=== PATIENT | male | born 1965 | race Caucasian/White ===

== ENCOUNTER 2024-11-23 14:02 | Inpatient (IN) | payer MEDICAID ==
[~2024-11-23] VITALS: Ht 172.7 cm; Wt 79.0 kg
[2024-11-23 14:54] LABS: BASOPHILS % 0.7 % (0.0-2.0); HEMATOCRIT. 24.8 % (42.0-52.0); HEMOGLOBIN. 8.3 g/dL (14.0-18.0); LYMPHOCYTES % 12.3 % (20.0-50.0); MEAN CORPUSCULAR HEMOGLOBIN 31.5 pg (28.0-32.0); MEAN CORPUSCULAR HGB CONC 33.5 g/dL (31.0-37.0); MEAN CORPUSCULAR VOLUME 94.2 fL (80.0-94.0); MEAN PLATELET VOLUME 8.3 fl (7.4-10.4); MONOCYTES % 9.4 % (2.0-8.0); NEUTROPHILS % 75.6 % (40.0-76.0); PLATELET 115 x1000/uL (130-400); RED BLOOD CELL COUNT 2.63 mill/uL (4.7-6.1); RED CELL DISTRIBUTION WIDTH 14.6 % (11.6-14.6); WHITE BLOOD COUNT 5.1 x1000/uL (4.5-11.0)
[2024-11-23 15:06] LABS: CHLORIDE 107 mEq/L (98-107); POTASSIUM 4.4 mEq/L (3.5-5.1); SODIUM 138 mEq/L (136-145)
[2024-11-23 15:07] LABS: CARBON DIOXIDE 23 mEq/L (21-32)
[2024-11-23 15:08] LABS: CALCIUM 8.6 mg/dL (8.7-10.4)
[2024-11-23 15:12] LABS: CREATININE 4.3 mg/dL (0.6-1.3); GLUCOSE 118 mg/dL (70-105); UREA NITROGEN BLOOD 55 mg/dL (9-23)
[2024-11-23 15:14] LABS: TROPONIN I HIGH SENSITIVITY 33 ng/L (3.0-53)
[2024-11-23 15:17] LABS: INR 1.1; PARTIAL THROMBOPLASTIN TIME 25.3 sec (23.4-31.0); PROTHROMBIN TIME 11.9 sec (9.6-11.0)
[2024-11-23] MEDS: FUROSEMIDE 40MG/4ML VIAL IVP ONE (15:40)
[2024-11-23 16:00] LABS: CLARITY URINE CLEAR (CLEAR); COLOR URINE YELLOW (YELLOW); PH URINE 6.5 (4.5-8.0); PROTEIN URINE 2+ (NEGATIVE)
[2024-11-23 16:01] LABS: GLUCOSE URINE 2+ (NEGATIVE); KETONES URINE NEGATIVE (NEGATIVE); LEUKOCYTE ESTERASE URINE NEGATIVE (NEGATIVE); NITRITE URINE NEGATIVE (NEGATIVE); OCCULT BLOOD URINE TRACE (NEGATIVE); UROBILINOGEN URINE 0.2 E.U./dL (0.2-1.0)
[2024-11-23 16:12] LABS: BACTERIA URINE FEW; RBC URINE 0-2 /hpf (0-2); SQUAMOUS EPITHELIAL CELL URINE NONE SEEN /lpf (RARE/1+); WBC URINE 0-2 /hpf (0-2); YEAST URINE NONE SEEN
[2024-11-23] MEDS ORDERED: GUAIFENESIN 200MG/10ML SUGAR FREE UDC PO PRN (16:15)
[2024-11-23] MEDS ORDERED: DEXTROSE 50% WATER 50ML SYRINGE IV PRN (16:15)
[2024-11-23] MEDS ORDERED: CLONIDINE 0.1MG TABLET PO PRN (16:15)
[2024-11-23] MEDS ORDERED: DOCUSATE SODIUM 100MG CAPSULE PO PRN (16:15)
[2024-11-23] MEDS ORDERED: ACETAMINOPHEN 325MG TABLET PO PRN (16:15)
[2024-11-23] MEDS ORDERED: IPRATROPIUM/ALBUTEROL 0.5-3(2.5)MG/3ML NEB HHN PRN (16:15)
[2024-11-23] MEDS: FUROSEMIDE 40MG/4ML VIAL IVP SCH (16:15)
[2024-11-23] MEDS ORDERED: ONDANSETRON HCL 4MG/2ML INJ IV PRN (16:15)
[2024-11-23] MEDS ORDERED: MAGNESIUM/ALUMINUM HYDROXIDE/SIMETHICONE 30ML UDC PO PRN (16:15)
[2024-11-23 17:24] LABS: FERRITIN 57 ng/mL (22-322); FOLIC ACID (FOLATE) SERUM 12.56 ng/mL (>5.38); TOTAL IRON BINDING CAPACITY 351 ug/dl (250-425); VITAMIN B12 SERUM 778 pg/mL (211-911)
[2024-11-23 17:28] LABS: IRON 46 ug/dL (65-175)
[2024-11-23] MEDS: INSULIN LISPRO 100 UNITS/ML SUBCUT SCH (17:40)
[2024-11-23 17:45] VITALS: BP 152/85; PULSE 80; RESP 18; TEMP 36.7
[2024-11-23] MEDS: BLOOD SUGAR DIAGNOSTIC STRIP TEST SCH (17:47)
[2024-11-23 17:50] VITALS: BP 152/85; PULSE 83; RESP 18; TEMP 36.7; O2SAT 96
[2024-11-23] MEDS: AMLODIPINE 10MG TABLET PO SCH (18:36)
[2024-11-23 20:06] VITALS: BP 130/82; PULSE 78; RESP 18; TEMP 36.8; O2SAT 95
[2024-11-24 00:04] VITALS: BP 141/85; PULSE 80; RESP 17; TEMP 36.6; O2SAT 95
[2024-11-24 00:33] LABS: TROPONIN I HIGH SENSITIVITY 51 ng/L (3.0-53)
[2024-11-24 00:34] LABS: CREATINE KINASE 162 IU/L (46-171)
[2024-11-24 04:05] VITALS: BP 137/65; PULSE 81; RESP 18; TEMP 36.7; O2SAT 93
[2024-11-24] MEDS: FUROSEMIDE 40MG/4ML VIAL IV SCH (06:22)
[2024-11-24 07:36] LABS: *AMPHETAMINES SCREEN URINE NEGATIVE (NEGATIVE); *BENZODIAZEPINES SCREEN URINE NEGATIVE (NEGATIVE)
[2024-11-24 07:37] LABS: *BARBITURATES SCREEN URINE NEGATIVE (NEGATIVE); *COCAINE SCREEN URINE NEGATIVE (NEGATIVE); CANNABINOID URINE SCREEN NEGATIVE (NEGATIVE); ECSTASY MDMA SCREEN URINE NEGATIVE (NEGATIVE); METHADONE URINE SCREEN NEGATIVE (NEGATIVE); OPIATES URINE SCREEN NEGATIVE (NEGATIVE); PHENCYCLIDINE URINE SCREEN NEGATIVE (NEGATIVE)
[2024-11-24 07:46] LABS: BASOPHILS % 0.7 % (0.0-2.0); HEMATOCRIT. 24.8 % (42.0-52.0); HEMOGLOBIN. 8.1 g/dL (14.0-18.0); LYMPHOCYTES % 16.6 % (20.0-50.0); MEAN CORPUSCULAR HEMOGLOBIN 30.7 pg (28.0-32.0); MEAN CORPUSCULAR HGB CONC 32.6 g/dL (31.0-37.0); MEAN CORPUSCULAR VOLUME 94.1 fL (80.0-94.0); MEAN PLATELET VOLUME 9.2 fl (7.4-10.4); MONOCYTES % 10.9 % (2.0-8.0); NEUTROPHILS % 68.8 % (40.0-76.0); PLATELET 113 x1000/uL (130-400); RED BLOOD CELL COUNT 2.64 mill/uL (4.7-6.1); RED CELL DISTRIBUTION WIDTH 14.7 % (11.6-14.6); WHITE BLOOD COUNT 4.3 x1000/uL (4.5-11.0)
[2024-11-24 07:57] LABS: TROPONIN I HIGH SENSITIVITY 43 ng/L (3.0-53)
[2024-11-24 08:00] VITALS: BP 149/84; PULSE 77; RESP 20; TEMP 36.4; O2SAT 95
[2024-11-24 08:00] LABS: CALCIUM 8.5 mg/dL (8.7-10.4); CREATINE KINASE 148 IU/L (46-171)
[2024-11-24 08:05] LABS: CREATININE 4.4 mg/dL (0.6-1.3)
[2024-11-24 08:08] LABS: T4 FREE 1.36 ng/dL (0.89-1.76); THYROID STIMULATING HORMONE 3.69 uIU/mL (0.55-4.78)
[2024-11-24] MEDS: ENOXAPARIN 40MG/0.4ML SYR SUBCUT SCH (09:55)
[2024-11-24] MEDS: PANTOPRAZOLE SODIUM 40 MG/VIAL IV SCH (09:55)
[2024-11-24 12:00] VITALS: BP 133/62; PULSE 74; RESP 20; TEMP 36.4; O2SAT 100
[2024-11-24] MEDS: NITROGLYCERIN OINT 1GM/INCH UDPKT TD SCH (12:02)
[2024-11-24 16:00] VITALS: BP 125/73; PULSE 74; RESP 20; TEMP 36.2; O2SAT 98
[2024-11-24 20:00] VITALS: BP 127/70; PULSE 77; RESP 18; TEMP 36.5; O2SAT 97
[2024-11-25] VITALS: BP 128/76; PULSE 77; RESP 16; TEMP 35.8; O2SAT 98
[2024-11-25 04:00] VITALS: BP 142/74; PULSE 79; RESP 20; TEMP 36.8; O2SAT 100
[2024-11-25 06:43] LABS: BASOPHILS % 0.8 % (0.0-2.0); EOSINOPHILS % 3.5 % (0.0-5.0); HEMATOCRIT. 23.7 % (42.0-52.0); HEMOGLOBIN. 7.9 g/dL (14.0-18.0); LYMPHOCYTES % 16.9 % (20.0-50.0); MEAN CORPUSCULAR HEMOGLOBIN 31.1 pg (28.0-32.0); MEAN CORPUSCULAR HGB CONC 33.4 g/dL (31.0-37.0); MEAN CORPUSCULAR VOLUME 93.1 fL (80.0-94.0); MEAN PLATELET VOLUME 8.5 fl (7.4-10.4); MONOCYTES % 12.7 % (2.0-8.0); NEUTROPHILS % 66.1 % (40.0-76.0); PLATELET 114 x1000/uL (130-400); RED BLOOD CELL COUNT 2.55 mill/uL (4.7-6.1); RED CELL DISTRIBUTION WIDTH 13.9 % (11.6-14.6)
[2024-11-25 06:58] LABS: POTASSIUM 3.6 mEq/L (3.5-5.1)
[2024-11-25 07:00] LABS: CALCIUM 8.2 mg/dL (8.7-10.4)
[2024-11-25 07:04] LABS: CREATININE 4.5 mg/dL (0.6-1.3)
[2024-11-25 08:00] VITALS: BP 144/80; PULSE 75; RESP 18; TEMP 36.6; O2SAT 97
[2024-11-25] MEDS: ENOXAPARIN 30MG/0.3ML SYR SUBCUT SCH (09:28)
[2024-11-25 09:49] VITALS: BP 144/80; PULSE 75; TEMP 97; O2SAT 97
[2024-11-25] MEDS ORDERED: ATOR40TA70 PO (11:15)
[2024-11-25] MEDS ORDERED: EMPA10TA PO (11:15)
[2024-11-25] MEDS ORDERED: TRAZ-251 PO (11:16)
[2024-11-25] MEDS ORDERED: HYDR50TA39 PO (11:16)
[2024-11-25] MEDS ORDERED: FURO40TA5 PO ×2 (11:16→11:17)
[2024-11-25] MEDS ORDERED: FERR325T6 PO (11:16)
[2024-11-27 17:10] LABS: ANTI-NUCLEAR ANTIBODIES DIRECT Negative (Negative)
[2024-11-28 09:10] LABS: COMPLEMENT C3 93 mg/dL (82-167); COMPLEMENT C4 20 mg/dL (12-38)
[2024-11-29 06:10] LABS: A/G RATIO 1.2 (0.7-1.7); ALBUMIN 2.9 g/dL (2.9-4.4); ALPHA-1-GLOBULIN 0.3 g/dL (0.0-0.4); ALPHA-2-GLOBULIN 0.6 g/dL (0.4-1.0); BETA GLOBULIN 0.8 g/dL (0.7-1.3); GAMMA GLOBULINS 0.7 g/dL (0.4-1.8); GLOBULIN TOTAL 2.4 g/dL (2.2-3.9); M-SPIKE Not Observed g/dL (Not Observed); TOTAL PROTEIN SERUM 5.3 g/dL (6.0-8.5)
== END 2024-11-25 11:40 | disposition home or self-care (01) | DRG 194 ==
LOC: ER 14:02 → EDBEDREQ 15:31 → EDBEDREQTM 15:31 → 8WST 17:11
PROVIDERS: ADMIT Internal Medicine; ATTEND Internal Medicine
DX: I13.2 Hypertensive heart and chronic kidney disease with heart failure and with stage 5 chronic kidney disease, or end stage renal disease (principal); J96.01 Acute respiratory failure with hypoxia; N17.9 Acute kidney failure, unspecified; D69.6 Thrombocytopenia, unspecified; G90.89 Other disorders of autonomic nervous system; E11.43 Type 2 diabetes mellitus with diabetic autonomic (poly)neuropathy; N18.5 Chronic kidney disease, stage 5; E11.22 Type 2 diabetes mellitus with diabetic chronic kidney disease; D53.9 Nutritional anemia, unspecified; I50.82 Biventricular heart failure; I25.10 Atherosclerotic heart disease of native coronary artery without angina pectoris; R94.31 Abnormal electrocardiogram [ECG] [EKG]; E78.5 Hyperlipidemia, unspecified; Z95.5 Presence of coronary angioplasty implant and graft; I25.2 Old myocardial infarction; Z79.899 Other long term (current) drug therapy; Z91.148 Patient's other noncompliance with medication regimen for other reason
CPT/HCPCS: 36415; 71045; 76770; 80048; 80061; 80305; 81003; 82550; 82607; 82728; 82746; 82962; 83036; 83540; 83550; 83735; 83880; 84100; 84155; 84165; 84439; 84443; 84484; 85025; 86038; 86160; 93005; 99285; A4606; J1650; J1815; J1940; J2470